=== PATIENT | male | born 1960 | race Caucasian/White ===

== ENCOUNTER 2018-08-12 01:28 | Emergency (ER) | payer BC ==
[2018-08-12] MEDS ORDERED: LIDOCAINE HCL 2% (MOUTH-THROAT) 15 ML UD PO ONE (01:41)
[2018-08-12] MEDS ORDERED: GLUCAGON INJ 1 MG VIAL IM ONE (02:22)
--- NOTE | 2018-08-12 02:42 | ED.PDOC ---
History of Present Illness - General Chief Complaint: GI Problem Stated Complaint: food lodged in throat Time Seen by Provider: 08/12/18 01:37 Source: patient Exam Limitations: no limitations - History of Present Illness Initial Comments: the patient is a 57-year-old male presenting to the emergency room secondary to a distal food bolus impaction in his lower esophagus. The patient has had this issue before and in fact has had it 3 times this month but has been able to pass it on his own prior to this. Approximately 5 hours ago the patient was having supper at a restaurant when he took his first few bites of steak and potatoes and new that he had another impaction. He has been unable to swallow any real water since but has not had a lot of difficulty with excessive secretions. The patient has a known distal esophageal stricture that has been dilated 3 times already in the past. Due to the increased frequency of incidences this past month, he feels it is likely time for another dilation. mild substernal lower chest discomfort only. He is not having difficulty breathing. He is speaking full sentences. He is pleasant and cooperative. Timing/Duration: 4-6 hours Severity: moderate Improving Factors: nothing Worsening Factors: nothing Associated Symptoms: chest pain, nausea/vomiting Allergies/Adverse Reactions: Allergies NO KNOWN ALLERGY Allergy (Verified 08/12/18 03:47) Review of Systems - Review of Systems Constitutional: States: no symptoms reported EENTM: States: no symptoms reported Respiratory: States: no symptoms reported Cardiology: States: no symptoms reported Gastrointestinal/Abdominal: States: vomiting - any water that he drinks Genitourinary: States: no symptoms reported Musculoskeletal: States: no symptoms reported Skin: States: no symptoms reported Neurological: States: no symptoms reported All other Systems: No Change from Baseline Past Medical History (General) - Patient Medical History Hx Seizures: No Hx Stroke: No Hx Dementia: No Hx Asthma: No Hx of COPD: No Hx Cardiac Disorders: No Hx Congestive Heart Failure: No Hx Pacemaker: No Hx Hypertension: No Hx Thyroid Disease: No Hx Diabetes: No Hx Gastroesophageal Reflux: Yes - esophygeal stritcure Hx Renal Disease: No Surgical History: other - Vaccination History Hx Tetanus, Diphtheria Vaccination: No Hx Influenza Vaccination: No Hx Pneumococcal Vaccination: No - Social History Hx Tobacco Use: No Hx Alcohol Use: No Family Medical History - Family History Father Family History: Unknown Physical Exam - Physical Exam General Appearance: Alert, Comfortable, No apparent distress Eye Exam: bilateral normal Ears, Nose, Throat: hearing grossly normal, normal pharynx Neck: full range of motion, supple Respiratory: no respiratory distress, no accessory muscle use Cardiovascular/Chest: normal peripheral pulses, no edema Peripheral Pulses: radial,right: 2+, radial,left: 2+ Gastrointestinal/Abdominal: non tender, soft Rectal Exam: deferred Extremity: normal range of motion, non-tender, normal inspection, no pedal edema, normal capillary refill 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 The patient has had several recurrences of temporary blockages over the last month or 2 indicating a recur rence of his esophageal stricture. He has been dilated apparently 3 times in the past with the last [address] Alex Oneal at [facility]. The patient has now been obstructed approximately 8 hours or so. He is handling his secretions well and therefore I do not believe would benefit from any decompression above. Vital signs have remained stable. He failed a trial of viscous lidocaine with ambulation as well as a trial of IM glucagon. He is receiving a dose of IM morphine for discomfort. He does appear to be stable to travel by private vehicle to [facility] for direct admit and evaluation by gastroenterology for disimpaction at the level of the lower esophagus with probable subsequent dilation. Obviously the patient is nothing by mouth. Transferring for specialty care. Departure - Departure Clinical Impression: Esophageal stricture Food impaction of esophagus Qualifiers: Encounter type: initial encounter Qualified Code(s): T18.128A - Food in esophagus causing other injury, initial encounter Disposition: Transfer to Hospital Condition: Fair Departure Forms: ED Discharge - Pt. Copy, Patient Portal Self Enrollment Transfer to Outside Facility - Transfer Information Accepting Provider:: dr rowe Accepting Facility: [facility] Reason for Transfer: required specialist not available
[2018-08-12 03:32] VITALS: O2SAT 97
[2018-08-12] MEDS: MORPHINE SULFATE INJ 10 MG/ML VIAL IM ONE ×2 (03:48→03:49)
[2018-08-12 04:28] VITALS: BP 139/95; TEMP 96.2
== END 2018-08-12 04:28 | disposition short-term general hospital (02) ==
LOC: ER 01:28
DX: T18.128A Food in esophagus causing other injury, initial encounter (principal); K22.2 Esophageal obstruction
CPT/HCPCS: J1610; J2270